=== PATIENT | female | born 1970 | race Native Hawaiian/Other Pacific Islander ===

== ENCOUNTER 2017-08-24 23:24 | Observation (INO) ==
[2017-08-25 00:07] LABS: Baso # (Auto) 0.1 th/mm3 (0.0-0.2); Baso % (Auto) 1.2 % (0.0-2.0); Eos # (Auto) 0.3 th/mm3 (0.0-0.4); Eos % (Auto) 4.4 % (0.0-4.0); Hematocrit 32.2 % (35.0-46.0); Lymph # (Auto) 3.2 th/mm3 (1.0-4.8); Lymph % (Auto) 48.6 % (9.0-44.0); Mean Corpuscular HGB Conc 34.2 % (32.0-36.0); Mean Corpuscular Hemoglobin 29.5 pg (27.0-34.0); Mean Corpuscular Volume 86.3 fL (80.0-100.0); Mean Platelet Volume 8.5 fL (7.0-11.0); Mono # (Auto) 0.5 th/mm3 (0.0-0.9); Mono % (Auto) 7.5 % (0.0-8.0); Neut # (Auto) 2.5 th/mm3 (1.8-7.7); Neut % (Auto) 38.3 % (16.0-70.0); Platelet Count 187 th/mm3 (150-450); Red Blood Count 3.73 mil/mm3 (4.00-5.30); Red Cell Distribution Width 13.7 % (11.6-17.2); White Blood Count 6.6 th/mm3 (4.0-11.0)
[2017-08-25 00:20] LABS: Activated Partial Thrombo Time 25.4 sec (24.3-30.1); Albumin 3.3 g/dL (3.4-5.0); Anion Gap 9 meq/L (5-15); Aspartate Aminotransferase 7 U/L (15-37); Blood Urea Nitrogen 11 mg/dL (7-18); Calcium 7.7 mg/dL (8.5-10.1); Carbon Dioxide 19.6 meq/L (21.0-32.0); Chloride 115 meq/L (98-107); Glomerular Filtration Rate Greater Than 89 mL/min (>89); Glucose,Random 78 mg/dL (74-106); INR 1.1 Ratio; Potassium 3.5 meq/L (3.5-5.1); Prothrombin Time 10.7 sec (9.8-11.6); Sodium 144 meq/L (136-145)
[2017-08-25 00:21] LABS: Alanine Aminotransferase 12 U/L (10-53)
[2017-08-25 00:25] LABS: Alkaline Phosphatase 45 U/L (45-117); D-Dimer 0.43 mg/L FEU (0.00-0.50); Total Protein 6.4 g/dL (6.4-8.2)
--- NOTE | 2017-08-25 01:14 | ED ---
HPI General Chief complaint: Vaginal Bleeding Stated complaint: Bleeding/Evac Time Seen by Provider: 08/24/17 23:28 Source: patient and family Mode of arrival: ambulatory Limitations: language barrier History of Present Illness HPI narrative: History is provided by the patient with translation provided by the daughter. Formal translation services offered however refused. The patient has had vaginal bleeding for over a 1 week. Today the patient lost consciousness multiple times. She describes retrosternal chest pain. MD complaint: Vaginal bleeding and syncope Onset (ago): hour(s) Location: genitals Radiation: non-radiation Severity: moderate Relieving factors: none Exacerbating factors: none Related Data Home Medications Medication Instructions Recorded Confirmed levothyroxine 50 mcg PO DAILY 08/25/17 08/25/17 Allergies Allergy/AdvReac Type Severity Reaction Status Date / Time No Known Allergies Allergy Unverified 08/24/17 23:29 Review of Systems Except as stated in HPI: all other systems reviewed are negative PMFSH Medical History Medical History Heart abnormality (Acute) Ovarian cyst (Acute) delivery delivered (Acute) Thyroid disease (Acute) Social History Social History Substance History: No History of Abuse Second Hand Smoke Exposure: Yes Smoking Status: Current every day smoker Tobacco Type: Cigarettes How Often Do You Have a Drink Containing Alcohol: Never Recent Travel in [place] within the Last 8 Weeks: Yes Recent Out of Country Travel within the Last 8 Weeks: Yes Immunization History Tetanus Immunization: Unable to Assess Hx Influenza Vaccine This Season: No Exam Narrative Exam Narrative: GENERAL: Well-nourished well-developed 47-year-old female SKIN: Focused skin assessment warm/dry. HEAD: Atraumatic. Normocephalic. EYES: Pupils equal and round. No scleral icterus. No injection or drainage. ENT: No nasal bleeding or discharge. Mucous membranes pink and moist. NECK: Trachea midline. No JVD. CARDIOVASCULAR: Regular rate and rhythm. No murmur appreciated. RESPIRATORY: No accessory muscle use. Clear to auscultation. Breath sounds equal bilaterally. GASTROINTESTINAL: Abdomen soft, non-tender, nondistended. Hepatic and splenic margins not palpable. MUSCULOSKELETAL: No obvious deformities. No clubbing. No cyanosis. No edema. NEUROLOGICAL: Awake and alert. No obvious cranial nerve deficits. Motor grossly within normal limits. Normal speech. PSYCHIATRIC: Appropriate mood and affect; insight and judgment normal. Course Reevaluation(s) Reevaluation #1: Patient reassessed prior to admission is found resting comfortably. Results of workup were discussed and the patient was agreeable to plan to stay. Overall there is no obvious abnormality in the workup that would explain the symptoms. Patient discussed with the family medicine residents prior to admission. Initial Documented Vital Signs Temperature 97.8 F 08/24/17 23:46 Pulse Rate 58 L 08/24/17 23:46 Blood Pressure 122/75 08/24/17 23:46 Pulse Oximetry 98 08/24/17 23:46 Last Documented Vital Signs Temperature 97.8 F 08/24/17 23:46 Pulse Rate 58 L 08/24/17 23:46 Blood Pressure 122/75 08/24/17 23:46 Pulse Oximetry 98 08/24/17 23:46 Medical Decision Making Lab Data Lab results reviewed: Yes I reviewed the patient's lab results. Result diagrams: 08/24/17 23:50 08/24/17 23:50 Lab Results 08/24/17 08/24/17 08/24/17 Range/Units 23:50 23:50 23:50 WBC 6.6 (4.0-11.0) th/mm3 RBC 3.73 L (4.00-5.30) mil/mm3 Hgb 11.0 L (11.6-15.3) gm/dL Hct 32.2 L (35.0-46.0) % MCV 86.3 (80.0-100.0) fL MCH 29.5 (27.0-34.0) pg MCHC 34.2 (32.0-36.0) % RDW 13.7 (11.6-17.2) % Plt Count 187 (150-450) th/mm3 MPV 8.5 (7.0-11.0) fL Neut % (Auto) 38.3 (16.0-70.0) % Lymph % (Auto) 48.6 H (9.0-44.0) % Drew % (Auto) 7.5 (0.0-8.0) % Eos % (Auto) 4.4 H (0.0-4.0) % Baso % (Auto) 1.2 (0.0-2.0) % Neut # (Auto) 2.5 (1.8-7.7) th/mm3 Lymph # (Auto) 3.2 (1.0-4.8) th/mm3 Drew # (Auto) 0.5 (0.0-0.9) th/mm3 Eos # (Auto) 0.3 (0.0-0.4) th/mm3 Baso # (Auto) 0.1 (0.0-0.2) th/mm3 WBC Differential . Differential Comment Auto diff final PT 10.7 (9.8-11.6) sec INR 1.1 Ratio APTT 25.4 (24.3-30.1) sec D-Dimer Quant (PE/DVT) 0.43 (0.00-0.50) mg/L FEU Sodium 144 (136-145) meq/L Potassium 3.5 (3.5-5.1) meq/L Chloride 115 H (98-107) meq/L Carbon Dioxide 19.6 L (21.0-32.0) meq/L Anion Gap 9 (5-15) meq/L BUN 11 (7-18) mg/dL Creatinine 0.56 (0.50-1.00) mg/dL Estimated GFR Greater than 89 (>89) mL/min Random Glucose 78 (74-106) mg/dL Calcium 7.7 L (8.5-10.1) mg/dL Magnesium 2.0 (1.5-2.5) mg/dL Total Bilirubin 0.2 (0.2-1.0) mg/dL AST 7 L (15-37) U/L ALT 12 (10-53) U/L Alkaline Phosphatase 45 (45-117) U/L Troponin I Less than 0.02 L (0.02-0.05) ng/mL B-Natriuretic Peptide (0-100) pg/mL Total Protein 6.4 (6.4-8.2) g/dL Albumin 3.3 L (3.4-5.0) g/dL Urine Color (Yellw/Straw) Urine Clarity (Clear) Urine pH (5.0-8.5) Ur Specific [place] (1.002-1.035) Urine Protein (Neg-Trace) mg/dL Urine Glucose (UA) (Negative) mg/dL Urine Ketones (Negative) mg/dL Urine Occult Blood (Negative) Urine Nitrate (Negative) Urine Bilirubin (Negative) Urine Urobilinogen (Less than 2) mg/dL Ur Leukocyte Esterase (Negative) Urine RBC (0-3) /hpf Urine WBC (0-5) /hpf Ur Squamous Epith Cells (0-5) /hpf Urine Bacteria (None) /hpf Hyaline Casts (0-3) /lpf Urine Mucus (Occasional) /lpf Blood Type Blood Type Recheck Antibody Screen 08/24/17 08/25/17 08/25/17 Range/Units 23:50 00:10 01:03 WBC (4.0-11.0) th/mm3 RBC (4.00-5.30) mil/mm3 Hgb (11.6-15.3) gm/dL Hct (35.0-46.0) % MCV (80.0-100.0) fL MCH (27.0-34.0) pg MCHC (32.0-36.0) % RDW (11.6-17.2) % Plt Count (150-450) th/mm3 MPV (7.0-11.0) fL Neut % (Auto) (16.0-70.0) % Lymph % (Auto) (9.0-44.0) % Drew % (Auto) (0.0-8.0) % Eos % (Auto) (0.0-4.0) % Baso % (Auto) (0.0-2.0) % Neut # (Auto) (1.8-7.7) th/mm3 Lymph # (Auto) (1.0-4.8) th/mm3 Drew # (Auto) (0.0-0.9) th/mm3 Eos # (Auto) (0.0-0.4) th/mm3 Baso # (Auto) (0.0-0.2) th/mm3 WBC Differential Differential Comment PT (9.8-11.6) sec INR Ratio APTT (24.3-30.1) sec D-Dimer Quant (PE/DVT) (0.00-0.50) mg/L FEU Sodium (136-145) meq/L Potassium (3.5-5.1) meq/L Chloride (98-107) meq/L Carbon Dioxide (21.0-32.0) meq/L Anion Gap (5-15) meq/L BUN (7-18) mg/dL Creatinine (0.50-1.00) mg/dL Estimated GFR (>89) mL/min Random Glucose (74-106) mg/dL Calcium (8.5-10.1) mg/dL Magnesium (1.5-2.5) mg/dL Total Bilirubin (0.2-1.0) mg/dL AST (15-37) U/L ALT (10-53) U/L Alkaline Phosphatase (45-117) U/L Troponin I (0.02-0.05) ng/mL B-Natriuretic Peptide 18 (0-100) pg/mL Total Protein (6.4-8.2) g/dL Albumin (3.4-5.0) g/dL Urine Color Yellow (Yellw/Straw) Urine Clarity Hazy H (Clear) Urine pH 6.0 (5.0-8.5) Ur Specific [place] 1.008 (1.002-1.035) Urine Protein Negative (Neg-Trace) mg/dL Urine Glucose (UA) Negative (Negative) mg/dL Urine Ketones Negative (Negative) mg/dL Urine Occult Blood Moderate H (Negative) Urine Nitrate Negative (Negative) Urine Bilirubin Negative (Negative) Urine Urobilinogen Less than 2 (Less than 2) mg/dL Ur Leukocyte Esterase Negative (Negative) Urine RBC 2 (0-3) /hpf Urine WBC 3 (0-5) /hpf Ur Squamous Epith Cells 9 (0-5) /hpf Urine Bacteria Rare H (None) /hpf Hyaline Casts 1 (0-3) /lpf Urine Mucus Few H (Occasional) /lpf Blood Type A Positive Blood Type Recheck Required Antibody Screen Negative D-dimer is less than 0.5 The BNP is 18 Imaging Data Attestation: I personally reviewed and interpreted this imaging study as follows : Radiologist's impression: ITS Impressions Chest X-Ray 08/24/17 23:29 CONCLUSION: The lungs are clear. Head CT 08/25/17 00:00 CONCLUSION: 1. Negative noncontrast CT brain. ECG Data Interpretation: EKG shows a sinus bradycardia at a rate of 56 no preexcitation morphology Discharge Plan Discharge Disposition Patient Disposition: 30 Still Patient Physicians Team ED Provider: Delon Buitrago Primary Care Provider: Primary Care Haseebi,Vicky Attending Provider: Justus Abdi Other Providers: Rosalba Zarate Status ED Status: Admitted Observation Patient
--- NOTE | 2017-08-25 01:15 | XR ---
EXAM DATE: 08/24/2017 11:59 PM EDT AGE/SEX: 47 years / Female INDICATIONS: Chest discomfort, altered mental status starting today CLINICAL DATA: This is the patient's initial encounter. Patient reports that signs and symptoms have been present for 1 day and indicates a pain score of Nonresponsive. MEDICAL/SURGICAL HISTORY: None. None. COMPARISON: No prior exams available for comparison. FINDINGS: A single AP view of the chest demonstrates the lungs to be symmetrically aerated without evidence of mass, infiltrate or effusion. The cardiomediastinal contours are unremarkable. Mild curvature of the thoracic spine convex towards the right.. CONCLUSION: The lungs are clear. Electronically signed by: Jus Escalante MD 08/25/2017 1:13 AM EDT
[2017-08-25 02:47] LABS: Bacteria,Urine Rare /hpf; Bilirubin,Urine Negative (Negative); Clarity,Urine Hazy (Clear); Color,Urine Yellow (Yellw/Straw); Glucose,Urine (UA) Negative (Negative); Hyaline Casts,Urine 1 /lpf (0-3); Leukocyte Esterase,Urine Negative (Negative); Mucus,Urine Few /lpf (Occasional); Nitrite,Urine Negative (Negative); Specific Gravity,Urine 1.008 (1.002-1.035); Squamous Epithelial Cell,Urine 9 /hpf (0-5)
--- NOTE | 2017-08-25 03:04 | P.HPFP ---
History of Present Illness Primary Care Physician: No Primary Care Physician <Justus Abdi 08/25/17 14:14> Chief Complaint: fast heart rate and syncope <Adrienne Cespedes 08/25/17 04:24 > History of Present Illness: Patient is a 47-year-old female with past medical history of possible arrhythmia and hypothyroidism who presents to the ED after a syncopal episode. Patient reports that for the past 4 years has experienced intermittent episodes of heart palpitations followed by difficulties breathing and syncope. These episodes occur about every 2-4 months. Patient is originally from [place] and reports that she was told by a build manager in her country that she has a heart condition that will benefit from possible intervention to the procedure ( patient does not know procedure recommended). She has not been able to follow- up and obtain procedure. Patient reports that today she felt her heart beating really fast and she knew the syncopal episode was about to occur. She reports she felt confused after she regained consciousness. Denies any history of seizures seizure activities. She was not observed to have any jerky limb movements or bladder/bowel incontinence. Of note patient reports she takes 50 MCG of levothyroxine and has not taken this medication for the past 4 days because she believes this exacerbates her heart palpitations. Endorses dizziness, palpitations, pleuritic chest pain, shortness of breath, poor appetite (chronic), fatigue, numbness tingling of upper and lower extremities. Denies fever, chills, abdominal pain, or urinary symptoms Of note patient has also had 4 weeks of heavy bleeding with clots. She reports that she has not had any vaginal bleeding for the past day after taking a medication to help with the bleeding. One of her sons came into the room towards end of the interview and contributed to part of the history. He stated that his mom usually gets these syncopal and symptoms of heart palpitations when she gets really sad. He also reports that these symptoms have occurred every 2-4 months. He also reports that today when his mother had a syncopal episode he was able to catch her prevent her from falling. <Adrienne Cespedes 08/25/17 04:24> - Diagnosis (1) Syncope (2) Vaginal bleeding (3) Hypothyroid (4) Nutrition, metabolism, and development symptoms <Justus Abdi 08/25/17 14:14> (1) Syncope (2) Vaginal bleeding (3) Hypothyroid (4) Nutrition, metabolism, and development symptoms <Adrienne Cespedes 08/25/17 04:41> - Inpatient Certification If this patient has been admitted as an Inpatient: I certify that the inpatient services were ordered in accordance with Medicare regulations governing the order. This includes certification that hospital inpatient services are reasonable and necessary and in the case of services not specified as inpatient-only under 42 CFR 419.22(n), that they are appropriately provided as inpatient services in accordance to with the 2-midnight benchmark under 43 CFR 412.3(e) <Justus Abdi 08/25/17 14:14> I certify that the inpatient services were ordered in accordance with Medicare regulations governing the order. This includes certification that hospital inpatient services are reasonable and necessary and in the case of services not specified as inpatient-only under 42 CFR 419.22(n), that they are appropriately provided as inpatient services in accordance to with the 2-midnight benchmark under 43 CFR 412.3(e) <Adrienne Cespedes 08/25/17 03:04> Review of Systems All other systems reviewed negative except as stated in HPI <Adrienne Cespedes 08/25/17 04:24> PMFSH - History History Provided By: Patient <Adrienne Cespedes 08/25/17 03:04> - Medical History Medical History: Medical History (Last Updated 08/25/17 @ 04:01 by Adrienne Cespedes MD, R1) Heart abnormality Ovarian cyst delivery delivered Thyroid disease <Justus Abdi 08/25/17 14:14> Medical History (Last Updated 08/25/17 @ 04:01 by Adrienne Cespedes MD, R1) Heart abnormality Ovarian cyst delivery delivered Thyroid disease <Adrienne Cespedes 08/25/17 04:24> - Tobacco History Second Hand Smoke Exposure: Yes <Adrienne Cespedes 08/25/17 03:04> Tobacco Use In Past 30 Days: Yes <Adrienne Cespedes 08/25/17 03:04> Smoking Status: Current every day smoker <Adrienne Cespedes 08/25/17 03:04> Tobacco Type: Cigarettes <Adrienne Cespedes 08/25/17 03:04> - Alcohol History How Often Do You Have a Drink Containing Alcohol: Never <Adrienne Cespedes 07/08 03:04> - Substance Use History Substance History: No History of Abuse <Adrienne Cespedes 08/25/17 03:04> - Travel History Recent Travel in the [facility] Within the Last 8 Weeks: Yes <Adrienne Cespedes 08/25 03:04> Recent Travel Out of the Country Within the Last 8 Weeks: Yes <Adrienne Cespedes 08/25/17 03:04> - Immunization History Tetanus Immunization: Unable to Assess <Adrienne Cespedes 08/25/17 03:04> Hx Influenza Vaccine This Season: No <Adrienne Cespedes 08/25/17 03:04> Medications and Allergies Allergies Allergy/AdvReac Type Severity Reaction Status Date / Time No Known Allergies Allergy Unverified 08/24/17 23:29 <Justus Abdi 08/25/17 14:14> Home Medications Medication Instructions Recorded Confirmed Type levothyroxine 50 mcg PO DAILY 08/25/17 08/25/17 History <Justus Abdi 08/25/17 14:14> Active Medications: Active Medications Hydrocodone Bitart/Acetaminophen ([place] 7.5/325) 1 tab PO Q6H PRN PRN Reason: PAIN SCALE 6 TO 10 Al Hydroxide/Mg Hydroxide (Milk Of Magnesia Liq) 30 ml PO Q12H PRN PRN Reason: Mild Constipation Bisacodyl (Dulcolax Supp) 10 mg RECTAL DAILY PRN PRN Reason: SEVERE CONSITIPATION Ferrous Sulfate (Ferosul) 325 mg PO DAILY [facility] Last Admin: 08/25/17 11:31 Dose: Not Given Sodium Chloride (Ns Inj) 1,000 mls @ 100 mls/hr IV.CONT .Q10H [facility] Last Admin: 08/25/17 05:32 Dose: 100 mls/hr Lactulose (Lactulose Liq) 30 ml PO DAILY PRN PRN Reason: SEVERE CONSITIPATION Levothyroxine Sodium (Synthroid) 50 mcg PO DAILY@0600 [facility] Ondansetron HCl (Zofran Odt) 4 mg PO Q6H PRN PRN Reason: NAUSEA OR VOMITING Senna/Docusate Sodium (Ursula-Colace) 1 tab PO BID PRN PRN Reason: CONSTIPATION Sennosides (Senokot) 17.2 mg PO Q12H PRN PRN Reason: Moderate Constipation <Justus Abdi R - 08/25/17 14:14> Exam Vital signs: Vital Signs 08/24/17 23:46 08/25/17 05:07 08/25/17 06:09 Temperature 97.8 F 97.8 F Pulse Rate 58 L 57 L 50 L Respiratory Rate 16 18 Blood Pressure 122/75 103/72 102/58 L Pulse Oximetry 98 97 98 08/25/17 08:00 08/25/17 12:00 Temperature 97.3 F L 97.4 F L Pulse Rate 50 L 56 L Respiratory Rate 16 18 Blood Pressure 117/66 105/70 Pulse Oximetry 97 99 Intake & Output 08/24/17 08/25/17 08/25/17 18:59 06:59 18:59 Weight 69.5 kg Other: Weight On Admission 69.5 kg <Justus Abdi [facility] 08/25/17 14:14> Vital Signs 08/24/17 23:46 Temperature 97.8 F Pulse Rate 58 L Blood Pressure 122/75 Pulse Oximetry 98 Intake & Output 08/24/17 08/24/17 08/25/17 06:59 18:59 06:59 Weight 69 kg <Adrienne Cespedes 08/25/17 03:04> - Constitutional mild distress <Adrienne Cespedes 08/25/17 04:24> - Routine HEENT Exam Head: Present: normocephalic, atraumatic <Adrienne Cespedes 08/25/17 04:24> Eye: Present: EOMI (mild medial rectus weakness on eye exam), PERRL, conjunctivae pink. Absent: scleral injection, nystagmus <Adrienne Cespedes 04:24> ENT: Present: mucous membranes dry <Adrienne Cespedes 08/25/17 04:24> - Routine Neck Exam Present: supple. Absent: JVD, lymphadenopathy, thyromegaly <Adrienne Cespedes 08/25/17 04:24> - Routine Chest/Breast/Axilla Exam Chest wall: Present: tenderness (tenderness to palpation along sternal border of chest) <Adrienne Cespedes 08/25/17 04:24> Breast: Absent: tenderness <Adrienne Cespedes 08/25/17 04:24> - Routine Respiratory Exam Present: CTA bilaterally. Absent: accessory muscle use <Adrienne Cespedes 07/08 04:24> - Routine Cardiovascular Exam Present: RRR, S1, S2. Absent: murmur, gallop, rubs <Adrienne Cespedes 04:24> - Routine Abdominal Exam Present: soft, normoactive bowel sounds. Absent: tenderness <Adrienne Cespedes 08/25/17 04:24> - Routine Extremities Exam Present: pulses intact, normal capillary refill. Absent: cyanosis, clubbing, edema, calf tenderness, tenderness (Patient with diminished strenght of upper and lower extremities (more pronounced on LE and Left arm)) <Adrienne Cespedes 08/25/17 04:24> - Routine Skin Exam Absent: intact <Adrienne Cespedes [facility] 08/25/17 04:24> - Routine Neurological Exam Present: alert, oriented X3, CN II-XII intact. Absent: sensory deficit < Adrienne Cespedes 08/25/17 04:24> Results - Labs Result diagrams: 08/24/17 23:50 08/24/17 23:50 <Justus Abdi R - 08/25/17 14:14> Abnormal lab results 08/24/17 08/24/17 08/24/17 Range/Units 23:50 23:50 23:50 RBC 3.73 L (4.00-5.30) mil/mm3 Hgb 11.0 L (11.6-15.3) gm/dL Hct 32.2 L (35.0-46.0) % Lymph % (Auto) 48.6 H (9.0-44.0) % Eos % (Auto) 4.4 H (0.0-4.0) % Chloride 115 H (98-107) meq/L Carbon Dioxide 19.6 L (21.0-32.0) meq/L Calcium 7.7 L (8.5-10.1) mg/dL AST 7 L (15-37) U/L Troponin I Less than 0.02 L (0.02-0.05) ng/mL Albumin 3.3 L (3.4-5.0) g/dL TSH 5.680 H (0.358-3.740) uIU/mL Urine Clarity (Clear) Urine Occult Blood (Negative) Urine Bacteria (None) /hpf Urine Mucus (Occasional) /lpf 08/25/17 Range/Units 01:03 RBC (4.00-5.30) mil/mm3 Hgb (11.6-15.3) gm/dL Hct (35.0-46.0) % Lymph % (Auto) (9.0-44.0) % Eos % (Auto) (0.0-4.0) % Chloride (98-107) meq/L Carbon Dioxide (21.0-32.0) meq/L Calcium (8.5-10.1) mg/dL AST (15-37) U/L Troponin I (0.02-0.05) ng/mL Albumin (3.4-5.0) g/dL TSH (0.358-3.740) uIU/mL Urine Clarity Hazy H (Clear) Urine Occult Blood Moderate H (Negative) Urine Bacteria Rare H (None) /hpf Urine Mucus Few H (Occasional) /lpf Short CBC 08/24/17 Range/Units 23:50 WBC 6.6 (4.0-11.0) th/mm3 Hgb 11.0 L (11.6-15.3) gm/dL Hct 32.2 L (35.0-46.0) % Plt Count 187 (150-450) th/mm3 BMP 08/24/17 23:50 Sodium 144 Potassium 3.5 Chloride 115 H Carbon Dioxide 19.6 L BUN 11 Creatinine 0.56 Calcium 7.7 L Cardiac Enzymes 08/24/17 Range/Units 23:50 Troponin I Less than 0.02 L (0.02-0.05) ng/mL Liver Function 08/24/17 Range/Units 23:50 Total Bilirubin 0.2 (0.2-1.0) mg/dL AST 7 L (15-37) U/L ALT 12 (10-53) U/L Alkaline Phosphatase 45 (45-117) U/L Albumin 3.3 L (3.4-5.0) g/dL Urine 08/25/17 Range/Units 01:03 Urine Color Yellow (Yellw/Straw) Urine Clarity Hazy H (Clear) Urine pH 6.0 (5.0-8.5) Ur Specific [place] 1.008 (1.002-1.035) Urine Protein Negative (Neg-Trace) mg/dL Urine Glucose (UA) Negative (Negative) mg/dL <AstonheatherNisha danil R - 08/25/17 14:14> Abnormal lab results 08/24/17 08/24/17 08/25/17 Range/Units 23:50 23:50 01:03 RBC 3.73 L (4.00-5.30) mil/mm3 Hgb 11.0 L (11.6-15.3) gm/dL Hct 32.2 L (35.0-46.0) % Lymph % (Auto) 48.6 H (9.0-44.0) % Eos % (Auto) 4.4 H (0.0-4.0) % Chloride 115 H (98-107) meq/L Carbon Dioxide 19.6 L (21.0-32.0) meq/L Calcium 7.7 L (8.5-10.1) mg/dL AST 7 L (15-37) U/L Troponin I Less than 0.02 L (0.02-0.05) ng/mL Albumin 3.3 L (3.4-5.0) g/dL Urine Clarity Hazy H (Clear) Urine Occult Blood Moderate H (Negative) Urine Bacteria Rare H (None) /hpf Urine Mucus Few H (Occasional) /lpf Short CBC 08/24/17 Range/Units 23:50 WBC 6.6 (4.0-11.0) th/mm3 Hgb 11.0 L (11.6-15.3) gm/dL Hct 32.2 L (35.0-46.0) % Plt Count 187 (150-450) th/mm3 BMP 08/24/17 23:50 Sodium 144 Potassium 3.5 Chloride 115 H Carbon Dioxide 19.6 L BUN 11 Creatinine 0.56 Calcium 7.7 L Cardiac Enzymes 08/24/17 Range/Units 23:50 Troponin I Less than 0.02 L (0.02-0.05) ng/mL Liver Function 08/24/17 Range/Units 23:50 Total Bilirubin 0.2 (0.2-1.0) mg/dL AST 7 L (15-37) U/L ALT 12 (10-53) U/L Alkaline Phosphatase 45 (45-117) U/L Albumin 3.3 L (3.4-5.0) g/dL Urine 08/25/17 Range/Units 01:03 Urine Color Yellow (Yellw/Straw) Urine Clarity Hazy H (Clear) Urine pH 6.0 (5.0-8.5) Ur Specific [place] 1.008 (1.002-1.035) Urine Protein Negative (Neg-Trace) mg/dL Urine Glucose (UA) Negative (Negative) mg/dL <Adrienne Cespedes - 08/25/17 03:04> - Imaging Impressions Chest X-Ray 08/24/17 23:29 CONCLUSION: The lungs are clear. Head CT 08/25/17 00:00 CONCLUSION: 1. Negative noncontrast CT brain. <Justus Abdi R - 08/25/17 14:14> Impressions Chest X-Ray 08/24/17 23:29 CONCLUSION: The lungs are clear. Head CT 08/25/17 00:00 CONCLUSION: 1. Negative noncontrast CT brain. <Adrienne Cespedes - 08/25/17 04:24> Caprini VTE Risk Assessment Caprini VTE Risk Assessment: Moderate/High Risk (score >= 2) <Adrienne Cespedes - 08/25/17 04:24> VTE Pharmacological Exception Reason: High risk for bleeding (Patient with 4 wk h/o of heavy vaginal bleeding, has resolved since yesterday) <Adrienne Cespedes - 08/25/17 04:24> Caprini Risk Assessment Model: Point Value = 1 Point Value = 2 Point Value = 3 Point Value = 5 Age 41-60 Minor surgery BMI > 25 kg/m2 Swollen legs Varicose veins or History of unexplained or recurrent spontaneous Oral contraceptives or hormone replacement Sepsis (< 1 month) Serious lung disease, including pneumonia (< 1 month) Abnormal pulmonary function Acute myocardial infarction Congestive heart failure (< 1 month) History of inflammatory bowel disease Medical patient at bed rest Age 61-74 Arthroscopic surgery Major open surgery (> 45 min) Laparoscopic surgery (> 45 min) Malignancy Confined to bed (> 72 hours) Immobilizing plaster cast Central venous access Age >= 75 History of VTE Family history of VTE Factor V Leiden Prothrombin 49312C Lupus anticoagulant Anticardiolipin antibodies Elevated serum homocysteine Heparin-induced thrombocytopenia Other congenital or acquired thrombophilia Stroke (< 1 month) Elective arthroplasty Hip, pelvis, or leg fracture Acute spinal cord injury (< 1 month) <Justus Abdi R - 08/25/17 14:14> Point Value = 1 Point Value = 2 Point Value = 3 Point Value = 5 Age 41-60 Minor surgery BMI > 25 kg/m2 Swollen legs Varicose veins or History of unexplained or recurrent spontaneous Oral contraceptives or hormone replacement Sepsis (< 1 month) Serious lung disease, including pneumonia (< 1 month) Abnormal pulmonary function Acute myocardial infarction Congestive heart failure (< 1 month) History of inflammatory bowel disease Medical patient at bed rest Age 61-74 Arthroscopic surgery Major open surgery (> 45 min) Laparoscopic surgery (> 45 min) Malignancy Confined to bed (> 72 hours) Immobilizing plaster cast Central venous access Age >= 75 History of VTE Family history of VTE Factor V Leiden Prothrombin 14050C Lupus anticoagulant Anticardiolipin antibodies Elevated serum homocysteine Heparin-induced thrombocytopenia Other congenital or acquired thrombophilia Stroke (< 1 month) Elective arthroplasty Hip, pelvis, or leg fracture Acute spinal cord injury (< 1 month) <Adrienne Cespedes D - 08/25/17 03:04> Prophylaxis Regimen: Total Risk Factor Score Risk Level Prophylaxis Regimen 0-1 Low Early ambulation 2 Moderate Order ONE of the following: *Sequential Compression Device (SCD) *Heparin 5000 units SQ BID 3-4 Higher Order ONE of the following medications: *Heparin 5000 units SQ TID *Enoxaparin/Lovenox 40 mg SQ daily (WT < 150 kg, CrCl > 30 mL/min) *Enoxaparin/Lovenox 30 mg SQ daily (WT < 150 kg, CrCl > 10-29 mL/min) *Enoxaparin/Lovenox 30 mg SQ BID (WT < 150 kg, CrCl > 30 mL/min) AND/OR *Sequential Compression Device (SCD) 5 or more Highest Order ONE of the following medications: *Heparin 5000 units SQ TID (Preferred with Epidurals) *Enoxaparin/Lovenox 40 mg SQ daily (WT < 150 kg, CrCl > 30 mL/min) *Enoxaparin/Lovenox 30 mg SQ daily (WT < 150 kg, CrCl > 10-29 mL/min) *Enoxaparin/Lovenox 30 mg SQ BID (WT < 150 kg, CrCl > 30 mL/min) AND *Sequential Compression Device (SCD) <Justus Abdi R - 08/25/17 14:14> Total Risk Factor Score Risk Level Prophylaxis Regimen 0-1 Low Early ambulation 2 Moderate Order ONE of the following: *Sequential Compression Device (SCD) *Heparin 5000 units SQ BID 3-4 Higher Order ONE of the following medications: *Heparin 5000 units SQ TID *Enoxaparin/Lovenox 40 mg SQ daily (WT < 150 kg, CrCl > 30 mL/min) *Enoxaparin/Lovenox 30 mg SQ daily (WT < 150 kg, CrCl > 10-29 mL/min) *Enoxaparin/Lovenox 30 mg SQ BID (WT < 150 kg, CrCl > 30 mL/min) AND/OR *Sequential Compression Device (SCD) 5 or more Highest Order ONE of the following medications: *Heparin 5000 units SQ TID (Preferred with Epidurals) *Enoxaparin/Lovenox 40 mg SQ daily (WT < 150 kg, CrCl > 30 mL/min) *Enoxaparin/Lovenox 30 mg SQ daily (WT < 150 kg, CrCl > 10-29 mL/min) *Enoxaparin/Lovenox 30 mg SQ BID (WT < 150 kg, CrCl > 30 mL/min) AND *Sequential Compression Device (SCD) <Adrienne Cespedes D - 08/25/17 03:04> Assessment and Plan - Assessment (1) Syncope Code(s): R55 - Syncope and collapse Status: Chronic (2) Vaginal bleeding Code(s): N93.9 - Abnormal uterine and vaginal bleeding, unspecified Status: Acute (3) Hypothyroid Code(s): E03.9 - Hypothyroidism, unspecified Status: Chronic (4) Nutrition, metabolism, and development symptoms Code(s): R63.8 - Other symptoms and signs concerning food and fluid intake Status: Acute <Justus Abdi R - 08/25/17 14:14> (1) Syncope Code(s): R55 - Syncope and collapse Status: Chronic Plan: Patient with 4 year history of syncope accompanied by heart palpitations and shortness of breath. Again patient had episode of palpitation leading to shortness of breath and syncope. Reports symptoms have improved however she feels generalized fatigue and weakness. Patient also reports history of "heart abnormality" that was discussed with her by build manager in [place], but patient was not able to elaborate on condition or undergo follow-up care. Heart rate 58, other vital signs within normal limits troponin negative 1 Electrolytes with slight decrease in bicarbonate of 19.6 Coag panel within normal limits CT head and chest x-ray normal as noted above UA negative for infection but with occult blood, likely due to residual vaginal bleeding Patient to be placed observed overnight on telemetry IVF Follow-up EKG, TSH, echo, carotid ultrasound Cardiology consulted due to patient persistent history of unexplained syncope. (2) Vaginal bleeding Code(s): N93.9 - Abnormal uterine and vaginal bleeding, unspecified Status: Acute Plan: Patient reports 4-week history of vaginal bleeding. She reports she took a medication 1 day ago which stopped the bleeding. Currently reports no vaginal bleeding. Patient found to have a H/H of .2 Endorses symptoms of fatigue Iron supplements ordered (3) Hypothyroid Code(s): E03.9 - Hypothyroidism, unspecified Status: Chronic Plan: Hold home medication of levothyroxine Patient has noted that taking levothyroxine medication sometimes exacerbate her heart palpitations Patient reports she has not taken thyroid medication for the past 4 days. Follow-up TSH (4) Nutrition, metabolism, and development symptoms Code(s): R63.8 - Other symptoms and signs concerning food and fluid intake Status: Acute Plan: Fluids: 100 mL/hour Electrolytes: Replete as needed Nutrition regular diet DVT prophylaxis: SCDs <Adrienne Cespedes - 08/25/17 04:41> - Assessment and Plan Dr. Buitrago <Adrienne Cespedes 08/25/17 04:24> - Attending Attestation THIS CASE WAS DISCUSSED WITH THE RESIDENT PHYSICIAN. I HAVE REVIEWED THE RECORD AND AGREE WITH THE ABOVE NOTE AND PLAN OF CARE WAS DISCUSSED. I HAVE AUTHORIZED THE ORDER FOR PLACEMENT IN OUT-PATIENT OBSERVATION STATUS. <Justus Abdi R - 08/25/17 14:14>
[2017-08-25] MEDS ORDERED: Senna/Docusate Sodium 8.6/50 MG Tablet PO PRN (03:31)
[2017-08-25] MEDS ORDERED: Bisacodyl 10 MG Supp RECTAL PRN (03:31)
[2017-08-25] MEDS: Sod Chloride 0.9% Inj 1,000 ML IV.CONT SCH ×2 (05:32→16:34)
[2017-08-25] MEDS: Ferrous Sulfate 325 MG Tablet PO SCH ×2 (08:33→11:31)
--- NOTE | 2017-08-25 11:39 | P.PNFP ---
Subjective Interval history: Patient was seen at bedside this [facility]. She had no acute events overnight. Patient reports feeling alright and denied and continued chest discomfort or dizziness. However she did report some continued vaginal bleeding that she reports as small compared to before. She was educated by the resident on workup of continued vaginal bleeding and was agreeable to a transvaginal ultrasound. She denies any nausea, vomiting, fevers, or chills. Results - Labs Result diagrams: 08/24/17 23:50 08/24/17 23:50 Abnormal lab results 08/24/17 08/24/17 08/24/17 Range/Units 23:50 23:50 23:50 RBC 3.73 L (4.00-5.30) mil/mm3 Hgb 11.0 L (11.6-15.3) gm/dL Hct 32.2 L (35.0-46.0) % Lymph % (Auto) 48.6 H (9.0-44.0) % Eos % (Auto) 4.4 H (0.0-4.0) % Chloride 115 H (98-107) meq/L Carbon Dioxide 19.6 L (21.0-32.0) meq/L Calcium 7.7 L (8.5-10.1) mg/dL AST 7 L (15-37) U/L Troponin I Less than 0.02 L (0.02-0.05) ng/mL Albumin 3.3 L (3.4-5.0) g/dL TSH 5.680 H (0.358-3.740) uIU/mL Urine Clarity (Clear) Urine Occult Blood (Negative) Urine Bacteria (None) /hpf Urine Mucus (Occasional) /lpf 08/25/17 Range/Units 01:03 RBC (4.00-5.30) mil/mm3 Hgb (11.6-15.3) gm/dL Hct (35.0-46.0) % Lymph % (Auto) (9.0-44.0) % Eos % (Auto) (0.0-4.0) % Chloride (98-107) meq/L Carbon Dioxide (21.0-32.0) meq/L Calcium (8.5-10.1) mg/dL AST (15-37) U/L Troponin I (0.02-0.05) ng/mL Albumin (3.4-5.0) g/dL TSH (0.358-3.740) uIU/mL Urine Clarity Hazy H (Clear) Urine Occult Blood Moderate H (Negative) Urine Bacteria Rare H (None) /hpf Urine Mucus Few H (Occasional) /lpf Short CBC 08/24/17 Range/Units 23:50 WBC 6.6 (4.0-11.0) th/mm3 Hgb 11.0 L (11.6-15.3) gm/dL Hct 32.2 L (35.0-46.0) % Plt Count 187 (150-450) th/mm3 BMP 08/24/17 23:50 Sodium 144 Potassium 3.5 Chloride 115 H Carbon Dioxide 19.6 L BUN 11 Creatinine 0.56 Calcium 7.7 L Cardiac Enzymes 08/24/17 Range/Units 23:50 Troponin I Less than 0.02 L (0.02-0.05) ng/mL Liver Function 08/24/17 Range/Units 23:50 Total Bilirubin 0.2 (0.2-1.0) mg/dL AST 7 L (15-37) U/L ALT 12 (10-53) U/L Alkaline Phosphatase 45 (45-117) U/L Albumin 3.3 L (3.4-5.0) g/dL Urine 08/25/17 Range/Units 01:03 Urine Color Yellow (Yellw/Straw) Urine Clarity Hazy H (Clear) Urine pH 6.0 (5.0-8.5) Ur Specific Perry 1.008 (1.002-1.035) Urine Protein Negative (Neg-Trace) mg/dL Urine Glucose (UA) Negative (Negative) mg/dL - Imaging Impressions Chest X-Ray 08/24/17 23:29 CONCLUSION: The lungs are clear. Head CT 08/25/17 00:00 CONCLUSION: 1. Negative noncontrast CT brain. Physical Exam Vital signs: Vital Signs 08/24/17 23:46 08/25/17 05:07 08/25/17 06:09 Temperature 97.8 F 97.8 F Pulse Rate 58 L 57 L 50 L Respiratory Rate 16 18 Blood Pressure 122/75 103/72 102/58 L Pulse Oximetry 98 97 98 08/25/17 08:00 Temperature Pulse Rate 50 L Respiratory Rate Blood Pressure Pulse Oximetry Intake & Output 08/24/17 08/25/17 08/25/17 18:59 06:59 18:59 Weight 69.5 kg Other: Weight On Admission 69.5 kg - Constitutional no acute distress, average body habitus, cooperative - Routine HEENT Exam Head: Present: normocephalic, atraumatic - Routine Respiratory Exam Present: CTA bilaterally. Absent: accessory muscle use, rales, rhonchi, stridor , crackles - Routine Cardiovascular Exam Present: RRR, S1, S2. Absent: murmur, gallop, rubs - Routine Neurological Exam Present: alert, normal speech. Absent: altered mental status, facial asymmetry - Detailed Neurological Exam: Coma Scale Eye Opening: Spontaneous Verbal Response: Oriented Motor Response: Obey commands Alcon Coma Scale Total: 15 - Routine Psychiatric Exam Present: normal affect, normal thought process, cooperative, good insight, good judgment Assessment and Plan - Assessment (1) Syncope Code(s): R55 - Syncope and collapse Status: Chronic Plan: Patient with 4 year history of syncope accompanied by heart palpitations and shortness of breath. Again patient had episode of palpitation leading to shortness of breath and syncope. Reports symptoms have improved however she feels generalized fatigue and weakness. 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 Patient on telemetry with no acute events over night and has maintained heart rate in the mid to low 50s. At admission troponin were less than .02. Found to be hypothyroid with TSH at 5.680. - Follow up with Cardiology consult - Continue on telemetry - Carotid US pending, follow up - Follow up with EKG results (2) Vaginal bleeding Code(s): N93.9 - Abnormal uterine and vaginal bleeding, unspecified Status: Acute Plan: Patient reports 4-week history of vaginal bleeding. She reports she took a medication 1 day ago which stopped the bleeding. Overnight bleeding resumed. Plan about possible vaginal ultrasound was discussed with patient to which she agreed. Patient found to have a H/H of 32.2 - Follow up with Vaginal US - Continue ferosul 325mg daily - Monitor H/H (3) Hypothyroid Code(s): E03.9 - Hypothyroidism, unspecified Status: Chronic Plan: Patient reports continued fatigue in the setting of abnormal uterine bleeding and hypothyroid treating with 50mcg of home medication. Patient also reported that she had not taken thyroid medication for the past 4 days. On admission her TSH was found to be 5.680. - Resume home levothyroxine dose of 50mcg daily (4) Nutrition, metabolism, and development symptoms Code(s): R63.8 - Other symptoms and signs concerning food and fluid intake Status: Acute Plan: Patient found to have a calcium of 7.7 but after correction for an albumin of 3.3 her corrected calcium was 8.3 - Fluids: 100 mL/hour - Electrolytes: Replete as needed - Nutrition regular diet DVT prophylaxis: SCDs - Assessment and Plan Dr. Buitrago
--- NOTE | 2017-08-25 15:30 | MG ---
cc: David Barba MD, PhD DATE OF STUDY: 08/25/2017. TEST NUMBER: [id number]. TECHNIQUE: A 17-channel EEG. DESCRIPTION: Background rhythm is symmetrical alpha rhythm, frequency of 8-9 Hz. Amplitude is 20 microvolts. No lateralizing features were identified. No epileptiform discharges are seen. Photic stimulation does result in a normal driving response. INTERPRETATION: Normal electroencephalogram. David Barba MD, PhD MYA/TL , 03:21 PM , 03:28 PM
[2017-08-25 17:16] LABS: Hematocrit 31.5 % (35.0-46.0); Hemoglobin 10.8 gm/dL (11.6-15.3)
--- NOTE | 2017-08-25 17:46 | ECHRPT ---
Indication: Shortness of breath CONCLUSIONS Normal left ventricular size and wall thickness. The left ventricular systolic function is normal wi th an estimated ejection fraction in the range of 60-65%. Left ventricular diastolic function parameters a re normal. There is mild tricuspid valve regurgitation. The estimated pulmonary arterial pressure is 35.2 mmHg. BP: / HR: Rhythm: Sinus MEASUREMENTS (Male / Female) Normal Values Technical Quality:Fair 2D ECHO LV Diastolic Diameter PLAX 4.0 cm 4.2 - 5.9 / 3.9 - 5.3 cm LV Systolic Diameter PLAX 2.8 cm IVS Diastolic Thickness 0.9 cm 0.6 - 1.0 / 0.6 - 0.9 cm LVPW Diastolic Thickness 0.9 cm 0.6 - 1.0 / 0.6 - 0.9 cm LV Relative Wall Thickness 0.5 DOPPLER TR Peak Velocity 251.0 cm/s TR Peak Gradient 25.2 mmHg Right Atrial Pressure 10.0 mmHg Pulmonary Artery Systolic Pressu 35.2 mmHg Right Ventricular Systolic Press 35.2 mmHg FINDINGS LEFT VENTRICLE Normal left ventricular size and wall thickness. The left ventricular systolic function is normal wi th an estimated ejection fraction in the range of 60-65%. Left ventricular diastolic function parameters a re normal. There was limited left ventricular wall motion assessment due to poor endocardial visualization. RIGHT VENTRICLE Normal right ventricular size and systolic function. LEFT ATRIUM The left atrial size is normal. RIGHT ATRIUM The right atrial size is normal. ATRIAL SEPTUM Normal atrial septal thickness without atrial level shunting by limited color doppler interrogation. AORTA The aortic root and proximal ascending aorta are normal in size on limited imaging. MITRAL VALVE Structurally normal mitral valve. No mitral valve stenosis or regurgitation. AORTIC VALVE Trileaflet aortic valve. No aortic valve stenosis or regurgitation. TRICUSPID VALVE There is mild tricuspid valve regurgitation. The estimated pulmonary arterial pressure is 35.2 mmHg. PULMONARY VALVE No pulmonary valve regurgitation or stenosis. VESSELS The inferior vena cava is normal in size. PERICARDIUM No pericardial effusion. Lauri Hoffman MD (Electronically Signed) Final Date:25 August 2017 17:45
--- NOTE | 2017-08-25 17:53 | ECG ---
Date Performed: 08/25/2017 Time Performed: 05:06:27 PTAGE: 47 years EKG: SINUS BRADYCARDIA LOW QRS VOLTAGE IN PRECORDIAL LEADS BORDERLINE ECG PREVIOUS TRACING : 08/24/2017 23.45 Since the previous tracing, no significant change noted DOCTOR: Tatiana Aguilar Interpretating Date/Time 08/25/2017 17:51:44
--- NOTE | 2017-08-25 17:56 | ECG ---
Date Performed: 08/24/2017 Time Performed: 23:45:39 PTAGE: 47 years EKG: SINUS BRADYCARDIA LOW QRS VOLTAGE IN PRECORDIAL LEADS BORDERLINE ECG NO PREVIOUS TRACING DOCTOR: Tatiana Aguilar Interpretating Date/Time 08/25/2017 17:54:44
--- NOTE | 2017-08-25 20:40 | MB ---
cc: Rosalba Zarate MD, Ot[place]ar MD DATE: 08/25/2017 HISTORY OF PRESENT ILLNESS: A 47-year-old female originally from [place] with history of arrhythmia and hypothyroidism who presented with a syncopal episode, which was presented by palpitations and difficulty breathing. She has had similar episodes every 3 or 4 months. The patient was confused after she regained consciousness. She has not had any clear seizure activity. She has not had any chest pain. She complains of dizziness. PAST MEDICAL HISTORY: Positive for cardiac arrhythmia, hypothyroidism, syncope, history of ovarian cyst, and thyroid disease. MEDICATIONS: 1. Iron. 2. Levothyroxine was decreased to 50 mcg a day. ALLERGIES: NONE. SOCIAL HISTORY: The patient is a smoker. She does not drink alcohol. She lives with her son. FAMILY HISTORY: Negative for heart disease. REVIEW OF SYSTEMS: Otherwise negative. PHYSICAL EXAMINATION: VITAL SIGNS: Blood pressure 111/71, pulse 59 and regular. HEENT: Negative 2+ carotid upstrokes, no bruits. LUNGS: Clear. HEART: Regular with no murmur, gallop or rub. ABDOMEN: Soft. No bruits. EXTREMITIES: Without edema. 2+ distal pulses. NEUROLOGIC: Grossly nonfocal. CARDIOLOGY STUDIES: EKG was reviewed and showed sinus bradycardia. No acute changes. LABORATORY DATA: Hemoglobin 10.8, potassium 3.5, creatinine 0.6. AST and ALT normal. Troponin less than 0.02. BNP 18. TSH 5.7. DIAGNOSES: 1. Syncope. 2. Palpitations. 3. Hypothyroidism. 4. Vaginal bleeding. DISPOSITION: Ms. Lauren will be monitored on telemetry. Her EKG showed mild sinus bradycardia. Her echocardiogram showed well preserved left ventricular systolic function and mild tricuspid regurgitation. Her presentation is consistent with likely supraventricular tachycardia as the reason for her syncope. Her heart rate is relatively slow and therapy with beta kodak or calcium channel kodak may lead to the exacerbation of bradycardia and possible hypotension. She may potentially benefit from electrophysiology study and possible radiofrequency ablation in the future. She wishes to be discharged as soon as possible. If she remains stable, she can be discharged home tomorrow. Rosalba Zarate MD OEdenilson/ , 08:06 PM , 08:38 PM
--- NOTE | 2017-08-25 23:46 | US ---
EXAM DATE: 08/25/2017 11:36 PM EDT AGE/SEX: 47 years / Female INDICATIONS: Syncope. CLINICAL DATA: This is the patient's initial encounter. Patient reports that signs and symptoms have been present for 1 day and indicates a pain score of 0/10. MEDICAL/SURGICAL HISTORY: . Heart abnormality. Ovarian cysts. Thyroid disease. sectio n. COMPARISON: No prior exams available for comparison. VELOCITY PARAMETERS: ICA/CCA Ratio: Right 1.0 , Left 1.7 ICA: Right 91 cm/sec, Left 119 cm/sec CCA: Right 88 cm/sec, Left 69 cm/sec ECA: Right 71 cm/sec, Left 65 cm/sec Vertebral: Right 51 cm/sec antegrade, Left 65 cm/sec antegrade FINDINGS: Right Carotid: No significant plaque is visualized.The waveforms are within normal limits. Left Carotid: No significant plaque is visualized. The waveforms are within normal limits. Other: None. CONCLUSION: 1. Right Internal Carotid Artery: No significant plaque or narrowing. 2. Left Internal Carotid Artery: No significant plaque or narrowing. Electronically signed by: Jacoby Gregorio MD 08/25/2017 11:44 PM EDT
--- NOTE | 2017-08-25 23:48 | US ---
EXAM DATE: 08/25/2017 11:42 PM EDT AGE/SEX: 47 years / Female INDICATIONS: Bleeding. CLINICAL DATA: This is the patient's initial encounter. Patient reports that signs and symptoms have been present for 3 weeks and indicates a pain score of 0/10. MEDICAL/SURGICAL HISTORY: . Heart abnormality. Ovarian cysts. Thyroid disease. sectio n. COMPARISON: No prior exams available for comparison. MEASUREMENTS: Uterus:__9.4 x 5.5 x 4.6 Surgically absent. Endometrial Stripe:__8 mm Right Ovary:__ 1.9 x 1.7 x 2.0 cm Left Ovary:__ 3.1 x 2.8 x 2.5 cm FINDINGS: Uterus: 1 cm fibroid suspected of the fundus. Endometrial Stripe: The endometrial stripe displays homogeneous echotexture. Right Ovary: Ovary contains no mass or significant cystic lesion. Left Ovary: 2.2 x 1.6 x 1.7 cm simple appearing cyst. Fluid: No free fluid. Other: None. CONCLUSION: 1. Endometrial thickness of 8 mm is within normal limits for a premenopausal patient but would be mi ldly thickened if the patient is postmenopausal. Please correlate clinically. 2. Small fundal fibroid. 3. Small, benign-appearing cyst of the left ovary. Electronically signed by: Jacoby Gregorio MD 08/25/2017 11:47 PM EDT
[2017-08-26] MEDS: Sod Chloride 0.9% Inj 1,000 ML IV.CONT SCH ×2 (02:26→11:08)
[2017-08-26] MEDS ORDERED: Levothyroxine 50 MCG Tablet PO SCH (06:00)
[2017-08-26] MEDS: Ferrous Sulfate 325 MG Tablet PO SCH (08:34)
--- NOTE | 2017-08-26 09:38 | P.PNFP ---
Subjective Interval history: Patient was seen this morning at bedside. Patient had no acute overnight events. Patient did report some chest wall tenderness when taking large breaths. This pain was reproduced upon palpation of the chest wall. Patient denied any vaginal bleeding overnight. Patient was also adamant about going home today because of "somethings" she has to do. She denies any nausea, fevers or chills. <Sebastian Khan - 08/26/17 10:27> Results - Labs Result diagrams: 08/25/17 16:50 08/24/17 23:50 <Justus Abdi - 08/27/17 09:46> Abnormal lab results 08/25/17 08/25/17 Range/Units 16:50 20:41 Hgb 10.8 L (11.6-15.3) gm/dL Hct 31.5 L (35.0-46.0) % Troponin I Less than 0.02 L (0.02-0.05) ng/mL Short CBC 08/25/17 Range/Units 16:50 Hgb 10.8 L (11.6-15.3) gm/dL Hct 31.5 L (35.0-46.0) % Cardiac Enzymes 08/25/17 Range/Units 20:41 Troponin I Less than 0.02 L (0.02-0.05) ng/mL <Sebastian Khan - 08/26/17 10:22> - Imaging Impressions Carotid Doppler Study 08/25/17 00:00 CONCLUSION: 1. Right Internal Carotid Artery: No significant plaque or narrowing. 2. Left Internal Carotid Artery: No significant plaque or narrowing. Pelvis Ultrasound 08/25/17 00:00 CONCLUSION: 1. Endometrial thickness of 8 mm is within normal limits for a premenopausal patient but would be mildly thickened if the patient is postmenopausal. Please correlate clinically. 2. Small fundal fibroid. 3. Small, benign-appearing cyst of the left ovary. EE08/25/17 INTERPRETATION: Normal electroencephalogram. Echocardiogram: 08/25/17 Normal left ventricular size and wall thickness. The left ventricular systolic function is normal with an estimated ejection fraction in the range of 60-65%. Left ventricular diastolic function parameters are normal. There is mild tricuspid valve regurgitation. The estimated pulmonary arterial pressure is 35.2 mmHg <Sebastian Khan - 08/26/17 10:22> Physical Exam Vital signs: Intake & Output 08/26/17 08/27/17 08/27/17 18:59 06:59 18:59 Other: Date of Last Bowel Movement 08/26/17 <AstonNisha davisil R - 08/27/17 09:46> Vital Signs 08/25/17 12:00 08/25/17 16:00 08/25/17 20:00 Temperature 97.4 F L 97.6 F 98.0 F Pulse Rate 52 L 59 L 52 L Respiratory Rate 18 16 16 Blood Pressure 105/70 111/71 119/72 Pulse Oximetry 99 983 H 98 08/26/17 00:00 08/26/17 00:26 08/26/17 04:00 Temperature 97.9 F 97.7 F Pulse Rate 63 49 L 60 Respiratory Rate 16 18 Blood Pressure 112/72 114/66 Pulse Oximetry 99 98 08/26/17 04:50 08/26/17 08:00 Temperature 97.2 F L Pulse Rate 48 L 62 Respiratory Rate 16 Blood Pressure 109/63 Pulse Oximetry 97 Intake & Output 08/25/17 08/26/17 08/26/17 18:59 06:59 18:59 Intake Total 1480 / 1480 1040 / 1040 Output Total 600 / 600 1000 / 1000 Balance 880 / 880 40 / 40 Weight 69 kg Intake: IV 1000 / 1000 800 / 800 NS Inj 1,000 ML @ 100 mls/hr IV 1000 / 1000 800 / 800 .CONT .Q10H [facility] Rx#:[id number] Oral 480 / 480 240 / 240 Output: Urine 600 / 600 1000 / 1000 Stool 0 / 0 Other: Date of Last Bowel Movement 08/25/17 08/26/17 <Sebastian Khan - 08/26/17 09:38> - Constitutional mild distress, cooperative <Sebastian Khan - 08/26/17 10:22> - Routine HEENT Exam Head: Present: normocephalic, atraumatic <Sebastian Khan - 08/26/17 10:22> - Routine Chest/Breast/Axilla Exam Chest wall: Present: tenderness <Sebastian Khan - 08/26/17 10:22> - Routine Respiratory Exam Present: CTA bilaterally, rhonchi. Absent: accessory muscle use, rales, respiratory distress, stridor, wheezes, crackles <Sebastian Khan 08/26/17 10: 22> - Routine Cardiovascular Exam Present: S1, S2, murmur, bradycardia. Absent: RRR (Slightly bradycardic), gallop, rubs, S3, S4 <Sebastian Khan 08/26/17 10:22> - Routine Abdominal Exam Present: soft, normoactive bowel sounds. Absent: tenderness, distended, rebound , guarding <Sebastian Khan 08/26/17 10:22> - Routine Extremities Exam Present: pulses intact. Absent: cyanosis, clubbing, edema <Sebastian Khan 10:22> - Routine Neurological Exam Present: alert, moving all extremities, normal speech. Absent: motor deficit <Sebastian Khan 08/26/17 10:22> - Detailed Neurological Exam: Coma Scale Eye Opening: Spontaneous <Sebastian Khan 08/26/17 10:22> Verbal Response: Oriented <Sebastian Khan 08/26/17 10:22> Motor Response: Obey commands <Sebastian Khan 08/26/17 10:22> Alcon Coma Scale Total: 15 <Sebastian Khan 08/26/17 10:27> - Routine Psychiatric Exam Present: normal affect, normal thought process, cooperative, good insight, good judgment <Sebastian Khan 08/26/17 10:22> Assessment and Plan - Assessment (1) Syncope Code(s): R55 - Syncope and collapse Status: Chronic (2) Vaginal bleeding Code(s): N93.9 - Abnormal uterine and vaginal bleeding, unspecified Status: Acute (3) Hypothyroid Code(s): E03.9 - Hypothyroidism, unspecified Status: Chronic (4) Nutrition, metabolism, and development symptoms Code(s): R63.8 - Other symptoms and signs concerning food and fluid intake Status: Acute <BuffysyJustus Hawley 08/27/17 09:46> (1) Syncope Code(s): R55 - Syncope and collapse Status: Chronic Plan: Patient with 4 year history of syncope accompanied by heart palpitations and shortness of breath. Reports symptoms have improved however she feels some chest wall tenderness when take large deep breaths. This pain was reproduced upon palpation of the anterior chest. Yesterday the patient's echo showed EF of 60-65% and mild tricuspid regurgitation. She was seen by cardiology who reports that her syncopal episode was most likely due to a supraventricular tachycardia. Cardiology recommended out patient electrophysiological studies and cleared patient for discharge if stable. She denies any syncopal symptoms and denies any palpitations or chest pain this morning. - Discharge home, return to ED if syncopal episode recurs. - Follow up with Cardiology outpatient for EP study (2) Vaginal bleeding Code(s): N93.9 - Abnormal uterine and vaginal bleeding, unspecified Status: Acute Plan: Patient reports 4-week history of vaginal bleeding. Patient no vaginal bleeding overnight. Vaginal ultrasound on 08/25/18 revealed an endometrial thickness of 8 mm is within normal limits for a premenopausal patient, a small fundal fibroid, and small, benign-appearing cyst of the left ovary. Last H/H on 08/25/17 was 10.8/ 31.50. - Discharge home - Establish care with PCP and follow up if bleeding continues. (3) Hypothyroid Code(s): E03.9 - Hypothyroidism, unspecified Status: Chronic Plan: Patient reports continued fatigue in the setting of abnormal uterine bleeding and hypothyroid treating with 50mcg of home medication. Patient also reported that she had not taken thyroid medication for the past 4 days. On admission her TSH was found to be 5.680. - Resume home levothyroxine dose of 50mcg daily (4) Nutrition, metabolism, and development symptoms Code(s): R63.8 - Other symptoms and signs concerning food and fluid intake Status: Acute Plan: Resume regular diet upon discharge <Sebastian Khan O - 08/26/17 10:22> - Assessment and Plan Dr. Buitrago <Sebastian Khan - 08/26/17 09:38> - Attending Attestation This patient was seen and examined. The assessment and plan was discussed with the resident physician and I am in agreement with continued medical care as documented in this encounter. <Justus Abdi R - 08/27/17 09:46>
--- NOTE | 2017-08-26 12:28 | P.DS ---
Date of admission: 08/25/17 03:31 Primary care physician: Vicky Primary Care Physician Attending physician on discharge: Justus Abdi Anticipated date of discharge: 08/26/17 Brief History from admission: Patient is a 47-year-old female with past medical history of possible arrhythmia and hypothyroidism who presented to the ED after a syncopal episode. Patient reported that for the past 4 years she had experienced intermittent episodes of heart palpitations followed by difficulties breathing and syncope. These episodes occurred about every 2-4 months. Patient is originally from [place] and reported that she was told by a supervisor air conditioning installer in her country that she had a heart condition that will benefit from possible intervention from procedure (patient does not know procedure recommended). She has not been able to follow-up and obtain procedure. At admission patient reported that she felt her heart beating really fast and she knew the syncopal episode was about to occur. She reports she felt confused after she regaining consciousness. Denies any history of seizures seizure activities. She was not observed to have any jerky limb movements or bladder/bowel incontinence. At time of admission patient endorsed dizziness, palpitations, pleuritic chest pain, shortness of breath, poor appetite (chronic), fatigue, numbness tingling of upper and lower extremities. She denied fevers, chills, abdominal pain, or urinary symptoms. On admission she also reported 4 weeks of heavy bleeding with clots. She reported that she had not had any vaginal bleeding for the past day after taking a medication to help with the bleeding. DS: Diagnosis - Discharge Diagnosis (1) Syncope Status: Chronic (2) Vaginal bleeding Status: Acute (3) Hypothyroid Status: Chronic (4) Nutrition, metabolism, and development symptoms Status: Acute DS: Medications - Discharge Medications Prescriptions: ferrous sulfate [FeroSul] 325 mg PO DAILY 30 Days #30 tab ibuprofen 800 mg PO PRN PRN 30 Days tab PRN Reason: Pain Scale 3 To 5 DS: Summary - Time Spent with Patient Total time spent providing and/or coordinating discharge services: - Quality: VTE Deep Vein Thrombosis/Pulmonary Embolism Present on Admission: No Exam Vital signs: Vital Signs 08/25/17 16:00 08/25/17 20:00 08/26/17 00:00 Temperature 97.6 F 98.0 F 97.9 F Pulse Rate 59 L 52 L 63 Respiratory Rate 16 16 16 Blood Pressure 111/71 119/72 112/72 Pulse Oximetry 983 H 98 99 08/26/17 00:26 08/26/17 04:00 08/26/17 04:50 Temperature 97.7 F Pulse Rate 49 L 60 48 L Respiratory Rate 18 Blood Pressure 114/66 Pulse Oximetry 98 08/26/17 08:00 Temperature 97.2 F L Pulse Rate 51 L Respiratory Rate 16 Blood Pressure 109/63 Pulse Oximetry 97 Intake & Output 08/25/17 08/26/17 08/26/17 18:59 06:59 18:59 Intake Total 1480 / 1480 1040 / 1040 Output Total 600 / 600 1000 / 1000 Balance 880 / 880 40 / 40 Weight 69 kg Intake: IV 1000 / 1000 800 / 800 NS Inj 1,000 ML @ 100 mls/hr IV 1000 / 1000 800 / 800 .CONT .Q10H NICK Rx#:[id number] Oral 480 / 480 240 / 240 Output: Urine 600 / 600 1000 / 1000 Stool 0 / 0 Other: Date of Last Bowel Movement 08/25/17 08/26/17 Results Labs on day of discharge: Labs from last 24 hours 08/25/17 08/25/17 20:41 16:50 Hgb 10.8 L Hct 31.5 L Troponin I Less than 0.02 L - Impressions ITS Impressions Chest X-Ray 08/24/17 23:29 CONCLUSION: The lungs are clear. Carotid Doppler Study 08/25/17 00:00 CONCLUSION: 1. Right Internal Carotid Artery: No significant plaque or narrowing. 2. Left Internal Carotid Artery: No significant plaque or narrowing. Head CT 08/25/17 00:00 CONCLUSION: 1. Negative noncontrast CT brain. Pelvis Ultrasound 08/25/17 00:00 CONCLUSION: 1. Endometrial thickness of 8 mm is within normal limits for a premenopausal patient but would be mildly thickened if the patient is postmenopausal. Please correlate clinically. 2. Small fundal fibroid. 3. Small, benign-appearing cyst of the left ovary. Discharge Plan - Discharge Disposition Patient Disposition: 01 Discharge Home - Discharge Condition Condition: Stable - Discharge Order Discharge Orders: Discharge Order (Routine); Ordered 08/26/17 Ordered By: Sebastian Khan - Discharge Details Anticipated Discharge Date: 08/26/17 Discharge Comment: If patient experiences syncope again, seek emergency medical care immediatley. - Physicians Team Primary Care Provider: Primary Care Physici,No Attending Provider: Justus Abdi Other Providers: Rosalba Zarate MD
--- NOTE | 2017-08-26 14:10 | P.PNCA ---
Subjective Interval history: No CP, SOB, or palpitations. Mild dizziness. Physical Exam Vital signs: Vital Signs 08/25/17 16:00 08/25/17 20:00 08/26/17 00:00 Temperature 97.6 F 98.0 F 97.9 F Pulse Rate 59 L 52 L 63 Respiratory Rate 16 16 16 Blood Pressure 111/71 119/72 112/72 Pulse Oximetry 983 H 98 99 08/26/17 00:26 08/26/17 04:00 08/26/17 04:50 Temperature 97.7 F Pulse Rate 49 L 60 48 L Respiratory Rate 18 Blood Pressure 114/66 Pulse Oximetry 98 08/26/17 08:00 Temperature 97.2 F L Pulse Rate 51 L Respiratory Rate 16 Blood Pressure 109/63 Pulse Oximetry 97 Intake & Output 08/25/17 08/26/17 08/26/17 18:59 06:59 18:59 Intake Total 1480 / 1480 1040 / 1040 Output Total 600 / 600 1000 / 1000 Balance 880 / 880 40 / 40 Weight 152 lb 1.903 oz Intake: IV 1000 / 1000 800 / 800 NS Inj 1,000 ML @ 100 mls/hr IV 1000 / 1000 800 / 800 .CONT .Q10H NICK Rx#:[id number] Oral 480 / 480 240 / 240 Output: Urine 600 / 600 1000 / 1000 Stool 0 / 0 Other: Date of Last Bowel Movement 08/25/17 08/26/17 Narrative: GENERAL: Well-nourished, well-developed patient in no apparent distress. SKIN: Warm and dry. NECK: JVD normal - less than or equal to 5 cm H20. CARDIOVASCULAR: Regular rate and rhythm without murmurs, gallops or rubs. RESPIRATORY: Normal breath sounds - equal bilaterally. No accessory muscle use. No wheezes, rales or rubs. PERIPHERY: No cyanosis or edema. Assessment and Plan - Assessment (1) Syncope Code(s): R55 - Syncope and collapse Status: Chronic (2) Palpitations Code(s): R00.2 - Palpitations Status: Acute (3) Hypothyroid Code(s): E03.9 - Hypothyroidism, unspecified Status: Chronic (4) Vaginal bleeding Code(s): N93.9 - Abnormal uterine and vaginal bleeding, unspecified Status: Acute - Plan Tele with no significant arrhythmias. No recurrent syncope. Echo with nl LV systolic function. Recommend to keep well hydrated. Advised to quit smoking. DC home. F/u w PCP.
== END 2017-08-26 15:18 | disposition home or self-care (01) ==
LOC: NEPE 23:24 → NEDA 23:24 → N04 23:24
PROVIDERS: ADMIT Family Medicine; ATTEND Family Medicine